=== PATIENT | female | born 1955 | race African-American/Black ===

== ENCOUNTER → 2017-07-23 | Outpatient (CLI) | payer MEDICARE, OTHER | END | disposition home or self-care (01) | LOC: HKI 10:12 | DX: M25.551 Pain in right hip (principal); M25.561 Pain in right knee | CPT/HCPCS: 73502 ==

== ENCOUNTER → 2017-10-30 | Outpatient (CLI) | payer MEDICARE, OTHER | END | disposition home or self-care (01) | LOC: HKI 13:50 | DX: M16.11 Unilateral primary osteoarthritis, right hip (principal) ==

== ENCOUNTER → 2018-05-10 | Outpatient (CLI) | payer MEDICARE, OTHER | END | disposition home or self-care (01) | LOC: HKI 11:23 | DX: M16.11 Unilateral primary osteoarthritis, right hip (principal) | CPT/HCPCS: G0463 ==

== ENCOUNTER → 2018-06-07 | Outpatient (CLI) | payer MEDICARE, OTHER | END | disposition home or self-care (01) | LOC: HKI 09:48 | DX: Z01.818 Encounter for other preprocedural examination (principal) | CPT/HCPCS: G0463 ==

== ENCOUNTER → 2018-06-15 | Outpatient (CLI) | payer MEDICARE, OTHER ==
[2018-06-15] MEDS: NITROGLYCERIN AEROSOL (4.9 GM) (12:38)
[2018-06-15] MEDS: IOHEXOL 100 ML (12:50)
[2018-06-15] MEDS: SOD CHLORIDE 0.9% 100 ML (12:50)
== END | disposition home or self-care (01) ==
LOC: C/S 10:46
DX: R06.02 Shortness of breath (principal)
CPT/HCPCS: 75574

== ENCOUNTER → 2018-06-15 | Outpatient (CLI) | payer MEDICARE, OTHER ==
[~2018-06-15] MED LIST: ACETAMINOPHEN 1000 MG/100 ML IVPB IV; CEFAZOLIN 2 GM/50 ML (PMX) 50 ML (FOR WT < 120 KG) IVPB; DEXAMETHASONE 4 MG/ML 1 ML INJ IV; DIAZEPAM 5 MG TAB PO; DIPHENHYDRAMINE 50 MG CAP PO; FAMOTIDINE 20 MG TAB PO; LACTATED RINGER'S 1,000 ML IV; TRANEXAMIC ACID 1,000 MG in D5W 100 ML AT CLOSURE X1 IVPB; TRANEXAMIC ACID 1,000 MG in D5W 100 ML AT INCISION X1 IVPB
[2018-06-15 10:55] LABS: ANION GAP 11 (5-13); BLOOD UREA NITROGEN 15 mg/dl (7-20); CALCIUM 9.1 mg/dl (8.4-10.2); CARBON DIOXIDE 24 mmol/L (21-31); CHLORIDE 105 mmol/L (97-110); CREATININE 0.65 mg/dl (0.44-1.00); Estimated GFR > 60 mL/min (>60); GLUCOSE 215 mg/dl (70-220); POTASSIUM 3.9 mmol/L (3.5-5.1); SODIUM 140 mmol/L (135-144)
== END | disposition home or self-care (01) ==
LOC: LAB 08:00
DX: Z01.818 Encounter for other preprocedural examination (principal)
CPT/HCPCS: 80048; 87081

== ENCOUNTER 2018-10-01 07:49 | Emergency (ER) | payer MEDICARE, OTHER ==
[2018-10-01] MEDS: HYDROCODONE/APAP (5/325) TAB PO (08:33)
== END 2018-10-01 10:14 | disposition home or self-care (01) ==
LOC: FTE 07:49
DX: M13.851 Other specified arthritis, right hip (principal); I10 Essential (primary) hypertension; Z79.4 Long term (current) use of insulin; Z91.040 Latex allergy status
CPT/HCPCS: 73510; 99283-25